=== PATIENT | female | born 1950 | race Caucasian/White ===

== ENCOUNTER → 2018-12-01 | Outpatient (CLI) | payer MEDICARE ==
--- NOTE | 2018-12-01 13:12 | RADIOLOGY REPORT (SQ) ---
EXAM DESCRIPTION: CT ABD/PELVIS NO ORAL OR IV COMPLETED DATE/TIME: 12/01/2018 10:51 am REASON FOR STUDY: LUQ PAIN (R10.12), LLQ PAIN (R10.32) R10.32 LEFT LOWER QUADRANT PAIN R10.12 LEFT UPPER QUADRANT PAIN COMPARISON: Whole-body Bone scans 07/27/2014, 05/16/2012 TECHNIQUE: CT scan of the abdomen and pelvis performed without intravenous or oral contrast. Images reviewed with lung, soft tissue, and bone windows. Reconstructed coronal and sagittal MPR images revi ewed. All images stored on PACS. All CT scanners at this facility use dose modulation, iterative reconstruction, and/or weight based d osing when appropriate to reduce radiation dose to as low as reasonably achievable (ALARA). [facility]: Dose Right [facility]: CareDose [facility]: Dose Right [facility]: Teradose 4D [facility]: [employer] RADIATION DOSE: CT Rad equipment meets quality standard of care and radiation dose reduction techniq ues were employed. CTDIvol: 7.3 mGy. DLP: 341 mGy-cm.mGy. LIMITATIONS: None. FINDINGS: LOWER CHEST: Moderate size hiatal hernia. No nodules or infiltrates. NON-CONTRASTED LIVER, SPLEEN, ADRENALS: Evaluation limited by lack of IV contrast. No identified sign ificant masses. PANCREAS: No masses. No peripancreatic inflammatory changes. GALLBLADDER: Gallstones. No inflammatory changes to suggest cholecystitis. RIGHT KIDNEY AND URETER: No suspicious masses. Assessment limited by lack of IV contrast. 2 mm righ t upper pole intrarenal nonobstructive calculus. No hydronephrosis or hydroureter. LEFT KIDNEY AND URETER: No suspicious masses. Assessment limited by lack of IV contrast. No signifi cant calcifications. No hydronephrosis or hydroureter. AORTA AND RETROPERITONEUM: No aneurysm. No retroperitoneal masses or adenopathy. BOWEL AND PERITONEAL CAVITY: No CT evidence of bowel obstruction or free intraperitoneal air or fluid . Scattered colonic diverticuli without CT signs of acute diverticulitis APPENDIX: Post appendectomy PELVIS, BLADDER, AND ABDOMINAL WALL:No abnormal masses. No free fluid. Bladder normal. Post hysterec sadia BONES: Diffuse degenerative changes lumbar spine OTHER: No other significant finding. IMPRESSION: Gallstones without CT signs of acute cholecystitis. Post hysterectomy and appendectomy 2 mm right upper pole intrarenal nonobstructive stone COMMENT: Quality ID # [id number]: Final reports with documentation of one or more dose reduction techniques (e.g., Automated exposure control, adjustment of the mA and/or kV according to patient size, use of iterative reconstruction technique) TECHNICAL DOCUMENTATION: JOB ID: [id number] [employer]- All Rights Reserved Reading location - IP/workstation name: [email or web address]
== END ==
LOC: RAD 10:29
PROVIDERS: ATTEND Pain Medicine Interventional Pain Medicine
DX: R10.12 Left upper quadrant pain (principal); R10.32 Left lower quadrant pain
CPT/HCPCS: 74176

== ENCOUNTER 2019-01-13 09:44 | Day surgery (SDC) | payer MEDICARE ==
[~2019-01-13 09:44] MED LIST: PROPOFOL INJ 200 MG/20 ML VIAL IV ONE
[2019-01-13] MEDS ORDERED: ALBUTEROL SULFATE 0.083% NEB 2.5 MG/3 ML AMPUL NEB ONE (10:14)
[2019-01-13] MEDS ORDERED: PROMETHAZINE HCL INJ 25 MG/1 ML VIAL IV PRN ×2 (10:57)
[2019-01-13] MEDS ORDERED: FENTANYL CITRATE INJ/PF 100 MCG/2 ML AMPUL IV PRN ×3 (10:57)
[2019-01-13] MEDS ORDERED: MEPERIDINE HCL/PF INJ 25 MG/1 ML DISP.SYRIN IV PRN (10:57)
[2019-01-13] MEDS ORDERED: DIPHENHYDRAMINE HCL 50 MG/ML VIAL IV PRN (10:57)
[2019-01-13 12:03] VITALS: BP 94/41
--- NOTE | 2019-01-13 12:15 | Operative Report ---
Operative Report DATE OF SURGERY: 01/13/19 Operative Report: The risks, benefits and alternatives of the procedure including the risk of bleeding, perforation requiring surgery have been explained to the patient in detail and informed consent has been obtained. Patient is brought back to the operating room and placed in a left, lateral decubital position. Timeout was called. Propofol medication is administered. A rectal examination is done which did not reveal any masses, tears or fissures. An Olympus videoscope was introduced into the patient's rectum. The scope was then carefully advanced all the way to the cecum. The cecum was identified by the usual anatomical landmarks of the ileocecal valve as well as the appendiceal office. Photodocumentation is obtained. Scope was then sequentially pulled back via the rest segments of the colon colon, hepatic flexure, transverse colon, splenic flexure, descending colon and finally into the rectosigmoid portions of the colon. Retroflexion maneuver is performed. The risks benefits and alternatives of the procedure explained to the patient in detail and informed consent is obtained.A GIF Olympus video scope was inserted into the patient's mouth and hypopharynx, the esophagus is identified intubated and insufflated, the scope was then advanced through the esophagus stomach and duodenum, retroflexion maneuver is done, the esophagus stomach and first and second portions of the duodenum examined. PREOPERATIVE DIAGNOSIS: Epigastric pain rule out peptic ulcer disease. Weight loss. Change of bowel habits. Abdominal distention POSTOPERATIVE DIAGNOSIS: 4 polyps removed via snare polypectomy and retrieved. All of this well located in the hepatic flexure/transverse colon area. Diverticulosis without any evidence of diverticulitis. Internal hemorrhoids. Hiatal hernia. Duodenitis. Gastritis status post biopsy rule out Helicobacter pylori. 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 EGD with control of hemorrhage. EGD with biopsy SURGEON: CASEY FALCON ANESTHESIA: LMAC TISSUE REMOVED OR ALTERED: As noted above. COMPLICATIONS: None. ESTIMATED BLOOD LOSS: None. INTRAOPERATIVE FINDINGS: As noted above. PROCEDURE: Patient tolerated the procedure well. No immediate postprocedure complications are noted. Patient discharged in good condition. Discharge date 01/13/2019. Discharge diet: Regular. Discharge activity: Regular. 2-3-week follow-up to discuss findings. Patient is instructed call the office or proceed to the emergency room should there be any further proximal questions. Wait on the pathology. Surveillance colonoscopy 3-5 years.
--- NOTE | 2019-01-13 22:10 | EKG REPORT ---
SEVERITY:- NORMAL ECG - SINUS RHYTHM : Confirmed by: Pita Bernal 13-Jan-2019 22:10:02
== END 2019-01-13 12:15 | disposition home or self-care (01) ==
LOC: OROUT 09:44
PROVIDERS: ATTEND Internal Medicine Gastroenterology
DX: Z12.11 Encounter for screening for malignant neoplasm of colon (principal); D12.6 Benign neoplasm of colon, unspecified; K57.30 Diverticulosis of large intestine without perforation or abscess without bleeding; K64.8 Other hemorrhoids; Z86.010 Personal history of colon polyps; K29.50 Unspecified chronic gastritis without bleeding; K31.811 Angiodysplasia of stomach and duodenum with bleeding; K44.9 Diaphragmatic hernia without obstruction or gangrene; K29.80 Duodenitis without bleeding; R63.4 Abnormal weight loss; Z68.28 Body mass index [BMI] 28.0-28.9, adult; Z79.899 Other long term (current) drug therapy; Z09 Encounter for follow-up examination after completed treatment for conditions other than malignant neoplasm; Z87.19 Personal history of other diseases of the digestive system
CPT/HCPCS: 43239; 43255; 45385; 88305 ×2; 93005; 93010; J2704; A9270; 813